=== PATIENT | female | born 1960 | race Caucasian/White ===

== ENCOUNTER → 2020-12-26 | Outpatient (CLI) | payer MEDICARE, OTHER ==
--- NOTE | 2020-12-26 16:30 | RAD ---
XR FINGER(S)_RIGHT 2+VIEWS History: Reason: 4TH DIGIT INJURY, CUT TO FINGER / Spl. Instructions: / History: Technique: PA view the hand and 2 additional views of the fourth digit. Comparison: None. Findings: No acute fracture. Fourth digit soft tissue injury with skin irregularity and potential soft tissue g as. No radiopaque foreign body. Degenerative changes of the distal phalangeal joints most prominent w ithin the third joint. Third distal phalangeal joint erosive changes with subluxation of the distal p halanx in relation to the middle phalanx. Moderate first carpometacarpal DJD. Impression: 1. Fourth digit soft tissue injury with skin irregularity and potential soft tissue gas. 2. 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 Electronically signed by: Tito Mixon DO (12/26/2020 4:27 PM) [id number]
== END ==
LOC: RAD 13:14
PROVIDERS: ATTEND Specialist
DX: S61.216A Laceration without foreign body of right little finger without damage to nail, initial encounter (principal); M19.041 Primary osteoarthritis, right hand; X58.XXXA Exposure to other specified factors, initial encounter; Y93.89 Activity, other specified; Y92.89 Other specified places as the place of occurrence of the external cause; Y99.8 Other external cause status
CPT/HCPCS: 73140